=== PATIENT | female | born 1965 | race Caucasian/White ===

== ENCOUNTER 2017-04-18 20:54 | Emergency (ER) | payer MEDICAID ==
[~2017-04-18] VITALS: Ht 172.7 cm; Wt 142.9 kg
[2017-04-18 21:00] VITALS: BP_SYST 159
--- NOTE | 2017-04-18 21:24 | NUR ---
Patient to ER bed 6 to gown for evaluation. Side rails up. Report given to Lesvia ROLON.
--- NOTE | 2017-04-18 21:29 | NUR ---
Patient to ER C/O right knee pain pain s/p mechanical fall last night. Patient states that she trip & fall on concrete, right knee swelling, superficial abrasions, pain worse with movement 02/13. No other signs of injury or trauma. No signs of acute distress.
--- NOTE | 2017-04-18 21:30 | NUR ---
ER MD Whyte at bedside for evaluation
--- NOTE | 2017-04-18 21:38 | NUR ---
Right knee immobilizer placed. Patient educated on use & care.
--- NOTE | 2017-04-18 21:40 | NUR ---
Crutches properly fitted for patient by Walker VENTURA & Lesvia RN. Patient given crutch walking instructions and demonstration. Is able to demonstrate adequate crutch walking technique with crutches provided.
[2017-04-18 21:52] VITALS: BP_SYST 134
--- NOTE | 2017-04-18 21:52 | NUR ---
Patient given written and verbal discharge instructions and verbalizes understanding. ER MD Whyte discussed with patient the results and treatment provided. Patient in stable condition. ID arm band removed. Rx of ibuprofen given. Patient educated on pain management and to follow up with PMD. Pain Scale 0/10. Opportunity for questions provided and answered.
== END 2017-04-18 21:52 | disposition home or self-care (01) ==
LOC: SED 20:54
DX: S80.01XA Contusion of right knee, initial encounter (principal); E07.9 Disorder of thyroid, unspecified; X58.XXXA Exposure to other specified factors, initial encounter; Y93.89 Activity, other specified; Y92.89 Other specified places as the place of occurrence of the external cause; Y99.8 Other external cause status
CPT/HCPCS: 73564; 99284